=== PATIENT | male | born 1935 | race Two or more races ===

== ENCOUNTER 2019-11-28 07:14 | Outpatient (CLI) | payer OTHER ==
[2019-12-09] MEDS ORDERED: TAMS0.4C PO (12:44)
[2019-12-09] MEDS ORDERED: PREVACID30 M1 PO (12:44)
[2019-12-09] MEDS ORDERED: ATORVASTATIN CA40 MG PO (12:44)
[2019-12-09] MEDS ORDERED: FINASTERIDE5 MG PO (12:45)
[2019-12-09] MEDS ORDERED: BACLOFEN20 MG PO (12:45)
== END 2019-11-28 07:20 | disposition home or self-care (01) ==
LOC: LAB 07:14
PROVIDERS: ATTEND Orthopaedic Surgery Hand Surgery
DX: E11.9 Type 2 diabetes mellitus without complications (principal); E78.00 Pure hypercholesterolemia, unspecified; D65 Disseminated intravascular coagulation [defibrination syndrome]; D66 Hereditary factor VIII deficiency; N39.0 Urinary tract infection, site not specified; Z01.810 Encounter for preprocedural cardiovascular examination

== ENCOUNTER 2019-12-13 06:30 | Day surgery (SDC) | payer OTHER ==
[~2019-12-13 06:30] MED LIST: ATORVASTATIN CA40 MG PO; BACLOFEN20 MG PO; FINASTERIDE5 MG PO; PREVACID30 M1 PO; TAMS0.4C PO
== END 2019-12-13 12:35 | disposition home or self-care (01) ==
LOC: CIR.AMB 06:30 → ADM 11:15 → CIR.AMB 12:35
PROVIDERS: ATTEND Orthopaedic Surgery Hand Surgery
DX: G56.02 Carpal tunnel syndrome, left upper limb (principal)